=== PATIENT | male | born 2005 | race American Indian/Alaskan Native ===

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

== ENCOUNTER 2024-07-16 05:15 | Emergency (ER) | payer BC, OTHER ==
--- OUTSIDE RECORDS SUMMARY | 2024-07-16 05:20 | XMS REPORT | Continuity of Care Document ---
Author Name Unknown Address [address] [facility] [address] [place] [address] [facility] Address [address] [facility] [address] [facility] [address] [place] [address] Care Team Providers Care Clinical Research Physician Name Role Phone Pan Hodgson Primary Care Physician [phone] Pan Hodgson Attending Clinician Unavailable MARCO TIERNEY Attending Clinician Unavaila paul REYES Attending Clinician Unavailable Saurav [place], Marvin Attending Clinician [phone] Humberto RYAN, November Attending Clinician Unavailable Roseann Hodges MA Attending Clinician Unavail able Provider, [facility] Attending Clinician Un available Enid Bassett Attending Clinician [phone] ENID HAILE Attending Clinician Unavailable Doctor Unassigned, Waikele Attending Clinician U Speedy Molina MD Attending Clinician + [phone] Janette Attending Clinician Unavailable SPEEDY RAMOS M.D. Attending Clinician Un available CARDIOGENETICS, COUNSELOR Attending Clinician Un available AMY Admitting Clinician Unavailable Janette Admitting Clinician Unavailable Payers Payer Name Policy Type Policy Number Effective Date Expirati on Date Source BCBSTX O [id number] 2019 00:00:00 [facility] 6 [id number] [facility] Blue Cross [facility] 6 [id number] 2019 00:00:00 [facility] Problems Condition Name Condition Details Condition Category Status Onset Date Resolution Date Last Treatment Date Treating Clinician Comments Source 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 01-27 00:00: 00 [facility] Prolonged QT interval Prolonged QT interval [facility] Chest pain Chest pain Problem [facility] [id number] 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) Problem Active [facility] [id number] Mild intermitte nt asthma, unspecifie d whether complicate d Problem Active [facility] Laboratory test result abnormal Abnormal laboratory test result Problem Active [facility] [id number] 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 [facility] [id number] Loss of taste Problem Active [facility] [id number] QT prolongati on Problem Active [facility] [id number] GERD without esophagiti s Problem Active [facility] Attention deficit hyperactiv ity disorder ADHD (attention deficit hyperactiv ity disorder), combined type Problem Active [facility] [id number] Constipati on, unspecifie d constipati on type Problem Active [facility] [id number] Vitamin D deficiency disease Problem Active [facility] [id number] Generalize d anxiety disorder Problem Active [facility] Allergic rhinitis Non-season al allergic rhinitis, unspecifie d trigger Problem [facility] No known active problems No known active problems Disease [facility] Allergies, Adverse Reactions, Alerts Allergy Name Allergy Type Status Severity Reaction(s) Onset Date Inactive Date Treating Clinician Comments Source NO KNOWN ALLERGIE S Drug Class Active [facility] Social History Social Habit Start Date Stop Date Quantity Comments Source Exposure to SARS-CoV-2 (event) Not sure [facility] History of Tobacco Use [facility] Sex Assigned At [facility] Tobacco use and exposure 2021-02-28 00:00:00 2021-02-28 00:00:00 Never used [facility] Alcohol intake 2021-02-28 00:00:00 2021-02-28 00:00:00 Ex-drinker (finding) [facility] Smoking Status Start Date Stop Date Source Never Smoker [facility] Tobacco smoking consumption unknown [facility] Medications Ordered Medication Name Filled Medication Name Start Date Stop Date Current Medication? Ordering Clinician Indication Dosage Frequency Signature (SIG) Comments Components Source Amoxicillin -Pot Clavulanate 875-125 MG Amoxicillin -Pot Clavulanate 875-125 MG 2024-0 3-14 00:00: 00 No 1{table t} BID Amoxicilli n-Pot Clavulanat e 875-125 MG Albuterol Sulfate HFA 108 (90 Base) MCG/ACT Albuterol Sulfate HFA 108 (90 Base) MCG/ACT 2024-0 3-14 00:00: 00 No 2{puff_ as_need ed} 6xD Albuterol Sulfate HFA 108 (90 Base) MCG/ACT Pseudoeph-B romphen-DM 30-2-10 MG/5ML Pseudoeph-B romphen-DM 30-2-10 MG/5ML 2024-0 3-14 00:00: 00 No 5{ml_as _needed } QID Pseudoeph- Bromphen-D M 30-2-10 MG/5ML Amoxicillin -Pot Clavulanate 875-125 MG Amoxicillin -Pot Clavulanate 875-125 MG 2024-0 3-14 00:00: 00 No 1{table t} BID Amoxicilli n-Pot Clavulanat e 875-125 MG Albuterol Sulfate HFA 108 (90 Base) MCG/ACT Albuterol Sulfate HFA 108 (90 Base) MCG/ACT 2024-0 3-14 00:00: 00 No 2{puff_ as_need ed} 6xD Albuterol Sulfate HFA 108 (90 Base) MCG/ACT Pseudoeph-B romphen-DM 30-2-10 MG/5ML Pseudoeph-B romphen-DM 30-2-10 MG/5ML 2024-0 3-14 00:00: 00 No 5{ml_as _needed } QID Pseudoeph- Bromphen-D M 30-2-10 MG/5ML Fluticasone -Salmeterol 113-14 MCG/ACT Fluticasone -Salmeterol 113-14 MCG/ACT 2023-0 6-27 00:00: 00 No 2{puffs } BID Fluticason e-Salmeter ol 113-14 MCG/ACT Fluticasone -Salmeterol 113-14 MCG/ACT Fluticasone -Salmeterol 113-14 MCG/ACT 2023-0 6- 00:00: 00 No 2{puffs } BID Fluticason e-Salmeter ol 113-14 MCG/ACT Fluticasone -Salmeterol 113-14 MCG/ACT Fluticasone -Salmeterol 113-14 MCG/ACT 2023-0 6 00:00: 00 No 2{puffs } BID Fluticason e-Salmeter ol 113-14 MCG/ACT Fluticasone -Salmeterol 113-14 MCG/ACT Fluticasone -Salmeterol 113-14 MCG/ACT 2023-0 02-13 00:00: 00 No 2{puffs } BID Fluticason e-Salmeter ol 113-14 MCG/ACT Fluticasone -Salmeterol 113-14 MCG/ACT Fluticasone -Salmeterol 113-14 MCG/ACT 2023-0 6 00:00: 00 No 2{puffs } BID Fluticason e-Salmeter ol 113-14 MCG/ACT methylPREDN ISolone 4 MG methylPREDN ISolone 4 MG 2023-0 6- 00:00: 00 No QD methylPRED NISolone 4 MG Fluticasone -Salmeterol 115-21 MCG/ACT Fluticasone -Salmeterol 115-21 MCG/ACT 2023-0 6- 00:00: 00 No 2{puffs } BID Fluticason e-Salmeter ol 115-21 MCG/ACT Fluticasone -Salmeterol 115-21 MCG/ACT Fluticasone -Salmeterol 115-21 MCG/ACT 2023-0 6- 00:00: 00 No 2{puffs } BID Fluticason e-Salmeter ol 115-21 MCG/ACT Fluticasone -Salmeterol 115-21 MCG/ACT Fluticasone -Salmeterol 115-21 MCG/ACT 3-0 02-12 00:00: 00 No 2{puffs } BID Fluticason e-Salmeter ol 115-21 MCG/ACT methylPREDN ISolone 4 MG methylPREDN ISolone 4 MG 2022-0 02-12 00:00: 00 No QD methylPRED NISolone 4 MG Fluticasone -Salmeterol 115-21 MCG/ACT Fluticasone -Salmeterol 115-21 MCG/ACT 3-0 02-12 00:00: 00 No 2{puffs } BID Fluticason e-Salmeter ol 115-21 MCG/ACT methylPREDN ISolone 4 MG methylPREDN ISolone 4 MG 2022-0 02-12 00:00: 00 No QD methylPRED NISolone 4 MG Fluticasone -Salmeterol 115-21 MCG/ACT Fluticasone -Salmeterol 115-21 MCG/ACT 3-0 02-12 00:00: 00 No 2{puffs } BID Fluticason e-Salmeter ol 115-21 MCG/ACT No known medications 0 330 10:02: 39 No No known medication s [facility] Doxycycline Hyclate 100 MG Doxycycline Hyclate 100 MG 04-21 00:00: 00 No 1{capsu le} BID Doxycyclin e Hyclate 100 MG Doxycycline Hyclate 100 MG Doxycycline Hyclate 100 MG 0 04-21 00:00: 00 No 1{capsu le} BID Doxycyclin e Hyclate 100 MG No known medications 6 12:52: 48 No No known medication s [facility] Flonase Allergy Relief 50 MCG/ACT Flonase Allergy Relief 50 MCG/ACT 2019-08 00:00: 00 No 1{spray _in_eac h_nostr il} QD Flonase Allergy Relief 50 MCG/ACT Flonase Allergy Relief 50 MCG/ACT Flonase Allergy Relief 50 MCG/ACT 2019-08 00:00: 00 No 1{spray _in_eac h_nostr il} QD Flonase Allergy Relief 50 MCG/ACT Vitamin D (Ergocalcif velia) 1.25 MG (94880 [facility]) Oral Capsule Vitamin D (Ergocalcif velia) 1.25 MG (04392 [facility]) Oral Capsule 2018-08 0-04 00:00: 00 Yes [facility] Vitamin D3 Vitamin D3 04-18 00:00: 00 Yes Pan Hodgson 1 capsule [facility] Vitamin D3 96340 UNIT Vitamin D3 49581 UNIT 04-18 00:00: 00 No 1{capsu le} Vitamin D3 05782 UNIT Vitamin D3 92371 UNIT Vitamin D3 70867 UNIT 04-18 00:00: 00 No 1{capsu le} Vitamin D3 32081 UNIT Vitamin D3 13419 UNIT Vitamin D3 76544 UNIT 04-18 00:00: 00 No 1{capsu le} Vitamin D3 34154 UNIT Vitamin D3 39466 UNIT Vitamin D3 10264 UNIT 04-18 00:00: 00 No 1{capsu le} Vitamin D3 91431 UNIT Vitamin D3 98162 UNIT Vitamin D3 59476 UNIT 04-18 00:00: 00 No 1{capsu le} Vitamin D3 44278 UNIT Vitamin D3 97702 UNIT Vitamin D3 03206 UNIT 04-18 00:00: 00 No 1{capsu le} Vitamin D3 55402 UNIT Vitamin D3 32604 UNIT Vitamin D3 65996 UNIT 04-18 00:00: 00 No 1{capsu le} Vitamin D3 89779 UNIT Nadolol 40 MG Oral Tablet Nadolol 40 MG Oral Tablet 3-22 00:00: 00 Yes SPEEDY RAMOS M.D. 1 QD TAKE 1 TABLET DAILY [facility] Arnuity Ellipta Arnuity Ellipta 2-07 00:00: 00 Yes Pan Hodgson 1 puff [facility] No known medications No [facility] GuanFACINE HCl ER GuanFACINE HCl ER Yes Pan Hodgson 1 tablet qd x 1 week then 2 tabs qd [facility] Nadolol Nadolol Yes Pan Hodgson 1 tablet [facility] guanFACINE HCl ER 1 MG guanFACINE HCl ER 1 MG No QD guanFACINE HCl ER 1 MG Arnuity Ellipta 100 MCG/ACT Arnuity Ellipta 100 MCG/ACT No 1{puff} QD Arnuity Ellipta 100 MCG/ACT Nadolol 20 MG Nadolol 20 MG No 1{table t} QD Nadolol 20 MG guanFACINE HCl ER 1 MG guanFACINE HCl ER 1 MG No QD guanFACINE HCl ER 1 MG Nadolol 20 MG Nadolol 20 MG No 1{table t} QD Nadolol 20 MG No known medications No [facility] Arnuity Ellipta 100 MCG/ACT Arnuity Ellipta 100 MCG/ACT 09-14 00:00 :00 No QD Arnuity Ellipta 100 MCG/ACT Vital Signs Vital Name Observation Time Observation Value Comments S ource height 2023-11-01 09:20:00 68 [in_i] [facility] weight 2023-11-01 09:20:00 185 [lb_av] [facility] bmi 2023-11-01 09:20:00 28.13 kg/m2 [facility] height 2023-02-12 14:00:00 68 [in_i] [facility] weight 2023-02-12 14:00:00 182 [lb_av] [facility] temperature 2023-02-12 14:00:00 97.8 [degF] [facility] bmi 2023-02-12 14:00:00 27.67 kg/m2 [facility] oximetry 2023-02-12 14:00:00 99 % [facility] respiratory rate 2023-02-12 14:00:00 17 /min [facility] blood pressure systolic 2023-02-12 14:00:00 120 mm[Hg] [facility] blood pressure diastolic 2023-02-12 14:00:00 66 mm[Hg] [facility] height 2022-12-14 16:00:00 68 [in_i] [facility] weight 2022-12-14 16:00:00 190.2 [lb_av] [facility] temperature 2022-12-14 16:00:00 97.7 [degF] [facility] bmi 2022-12-14 16:00:00 28.92 kg/m2 [facility] oximetry 2022-12-14 16:00:00 97 % [facility] respiratory rate 2022-12-14 16:00:00 16 /min [facility] blood pressure systolic 2022-12-14 16:00:00 133 mm[Hg] [facility] blood pressure diastolic 2022-12-14 16:00:00 70 mm[Hg] [facility] Systolic blood pressure 2021-11-16 15:02:00 114 mm[Hg] [facility] Diastolic blood pressure 2021-11-16 15:02:00 52 mm[Hg] [facility] Heart rate 2021-11-16 15:02:00 45 /min [facility] Body height 2021-11-16 15:02:00 176 cm [facility] Body weight 2021-11-16 15:02:00 86.2 kg [facility] BMI 2021-11-16 15:02:00 27.83 kg/m2 [facility] Body mass index (BMI) [Percentile] Per age and sex 2021-11-16 15:02:00 93.28 % [facility] Oxygen saturation in Arterial blood by Pulse oximetry 2021-11-16 15:02:00 98 /min [facility] Systolic blood pressure 2021-02-28 23:40:00 117 mm[Hg] [facility] Diastolic blood pressure 2021-02-28 23:40:00 73 mm[Hg] [facility] Heart rate 2021-02-28 23:40:00 67 /min [facility] Body temperature 2021-02-28 23:40:00 36.83 Tamar [facility] Respiratory rate 2021-02-28 23:40:00 16 /min [facility] Body height 2021-02-28 23:40:00 175.3 cm [facility] Body weight 2021-02-28 23:40:00 89.359 kg [facility] BMI 2021-02-28 23:40:00 29.09 kg/m2 [facility] Oxygen saturation in Arterial blood by Pulse oximetry 2021-02-28 23:40:00 98 /min [facility] Systolic blood pressure 2021-01-28 17:51:00 123 mm[Hg] [facility] Diastolic blood pressure 2021-01-28 17:51:00 68 mm[Hg] [facility] Heart rate 2021-01-28 17:51:00 64 /min [facility] Body height 2021-01-28 17:51:00 176 cm [facility] Body weight 2021-01-28 17:51:00 89.5 kg [facility] BMI 2021-01-28 17:51:00 28.89 kg/m2 [facility] Oxygen saturation in Arterial blood by Pulse oximetry 2021-01-28 17:51:00 97 /min [facility] Systolic blood pressure 2019-10-22 13:42:00 107 mm[Hg] Location: [facility]; Position: Sitting [facility] Diastolic blood pressure 2019-10-22 13:42:00 76 mm[Hg] Location: RUE; Position: Sitting [facility] O2 SAT 2019-10-22 13:42:00 97 % Source: [facility] Body height 2019-10-22 13:42:00 174 cm [facility] Weight 2019-10-22 13:42:00 84.8 kg [facility] Body mass index (BMI) [Ratio] 2019-10-22 13:42:00 28.01 kg/m2 [facility] Heart Rate 2019-10-22 13:42:00 61 /min [facility] BP Systolic 2019-08-22 11:11:00 112 mm[Hg] Location: LUE; Position: Sitting [facility] BP Diastolic 2019-08-22 11:11:00 72 mm[Hg] Location: LUE; Position: Sitting [facility] Height 2019-08-22 11:11:00 173 cm [facility] Weight 2019-08-22 11:11:00 84.6 kg [facility] Body Mass Index Calculated 2019-08-22 11:11:00 28.27 kg/m2 [facility] Heart Rate 2019-08-22 11:11:00 70 /min [facility] O2 SAT 2019-08-22 11:11:00 100 % [facility] BP Systolic 2019-05-23 10:34:00 106 mm[Hg] Location: RUE; Position: Sitting [facility] BP Diastolic 2019-05-23 10:34:00 82 mm[Hg] Location: RUE; Position: Sitting [facility] Height 2019-05-23 10:34:00 173 cm [facility] Weight 2019-05-23 10:34:00 85.3 kg [facility] Body Mass Index Calculated 2019-05-23 10:34:00 28.5 kg/m2 [facility] Heart Rate 2019-05-23 10:34:00 56 /min [facility] O2 SAT 2019-05-23 10:34:00 97 % Source: [facility] BP Systolic 2019-02-07 10:44:00 104 mm[Hg] Location: RUE; Position: Sitting [facility] BP Diastolic 2019-02-07 10:44:00 68 mm[Hg] Location: RUE; Position: Sitting [facility] Height 2019-02-07 10:44:00 171 cm [facility] Weight 2019-02-07 10:44:00 78.3 kg [facility] Body Mass Index Calculated 2019-02-07 10:44:00 26.78 kg/m2 [facility] Heart Rate 2019-02-07 10:44:00 60 /min [facility] O2 SAT 2019-02-07 10:44:00 100 % [facility] BP Systolic 2018-11-08 10:59:00 107 mm[Hg] Location: RUE; Position: Sitting [facility] BP Diastolic 2018-11-08 10:59:00 61 mm[Hg] Location: RUE; Position: Sitting [facility] Height 2018-11-08 10:59:00 169 cm [facility] Weight 2018-11-08 10:59:00 72.8 kg [facility] Body Mass Index Calculated 2018-11-08 10:59:00 25.49 kg/m2 [facility] O2 SAT 2018-11-08 10:59:00 99 % [facility] Heart Rate 2018-11-08 10:59:00 63 /min [facility] BP Systolic 2018-10-04 13:39:00 124 mm[Hg] Location: LLE; Position: Sitting [facility] BP Diastolic 2018-10-04 13:39:00 57 mm[Hg] Location: LLE; Position: Sitting [facility] BP Systolic 2018-10-04 13:38:00 130 mm[Hg] Location: RLE; Position: Sitting [facility] BP Diastolic 2018-10-04 13:38:00 62 mm[Hg] Location: RLE; Position: Sitting [facility] BP Systolic 2018-10-04 13:36:00 103 mm[Hg] Location: LUE; Position: Sitting [facility] BP Diastolic 2018-10-04 13:36:00 68 mm[Hg] Location: LUE; Position: Sitting [facility] BP Systolic 2018-10-04 13:21:00 120 mm[Hg] Location: [facility]UE; Position: Sitting [facility] BP Diastolic 2018-10-04 13:21:00 73 mm[Hg] Location: RUE; Position: Sitting [facility] O2 SAT 2018-10-04 13:21:00 99 % Source: [facility] Height 2018-10-04 13:21:00 168 cm [facility] Weight 2018-10-04 13:21:00 71 kg [facility] Body Mass Index Calculated 2018-10-04 13:21:00 25.16 kg/m2 [facility] Heart Rate 2018-10-04 13:21:00 64 /min [facility] Procedures Procedure Date / Time Performed Performing Clinicia n Source ECG 12-LEAD 2021-11-16 00:00:00 Marvin Mg [facility] POCT GRP A STREP (MOLECULAR) 2021-03-01 00:21:00 Enid Haile [facility] ASSIGNMENT OF BENEFITS 2021-02-28 23:31:46 Docto r Unassigned, Waikele [facility] EKG (In Office) 2020-03-22 00:00:00 [facility] Echo (In Office) 2020-03-22 00:00:00 [facility] (In Office) 2019-10-16 00:00:00 [facility] EKG (In Office) 2019-10-16 00:00:00 [facility] EKG (In Office) 2019-07-15 00:00:00 [facility] (In Office) 2019-07-15 00:00:00 [facility] [O] Cardiac Stresst Test, ECG and BP Only 2019-05-23 00:00:00 [facility] EKG (In Office) 2019-05-07 00:00:00 [facility] (In Office) 2019-05-07 00:00:00 [facility] EKG (In Office) 2019-01-31 00:00:00 [facility] (In Office) 2019-01-31 00:00:00 [facility] EKG (In Office) 2018-10-31 00:00:00 [facility] (In Office) 2018-10-31 00:00:00 [facility] EKG (In Office) 2018-09-27 00:00:00 [facility] (In Office) 2018-09-27 00:00:00 [facility] Plan of Care Planned Activity Planned Date Details Comments Source Future Scheduled Test 2020-04-02 00:00:00 Echo ( In Office) [code = 78606] [facility] Diagnostic Test Pending 2019-10-22 00:00:00 Echo (In Office) [code = 24429] [facility] Diagnostic Test Pending 2019-10-22 00:00:00 EKG (In Office) [code = EKG (In Office)] [facility] Diagnostic Test Pending 2019-10-22 00:00:00 Echo (In Office) [code = 55936] [facility] Diagnostic Test Pending 2019-07-25 00:00:00 Echo (In Office) [code = 11961] [facility] Diagnostic Test Pending 2019-07-25 00:00:00 Echo (In Office) [code = 42250] [facility] Diagnostic Test Pending 2019-06-02 00:00:00 [O] Cardiac Stresst Test, ECG and BP Only [code = [O] Cardiac Stresst Test, ECG and BP Only] [facility] Diagnostic Test Pending 2019-06-02 00:00:00 [O] Cardiac Stresst Test, ECG and BP Only [code = [O] Cardiac Stresst Test, ECG and BP Only] [facility] Diagnostic Test Pending 2019-05-23 00:00:00 Echo (In Office) [code = 80179] [facility] Diagnostic Test Pending 2019-05-23 00:00:00 Echo (In Office) [code = 01033] [facility] Diagnostic Test Pending 2019-05-16 00:00:00 Echo (In Office) [code = 37010] [facility] Diagnostic Test Pending 2019-02-07 00:00:00 Echo (In Office) [code = 51341] [facility] Diagnostic Test Pending 2019-02-07 00:00:00 Echo (In Office) [code = 83783] [facility] Diagnostic Test Pending 2018-11-08 00:00:00 Echo (In Office) [code = 65478] [facility] Test Pending 2018-11-08 00:00:00 Echo (In Office) [code = 04562] [facility] Encounters Start Date/Time End Date/Time Encounter Type Admission Type Attending [facility] Care Department Encounter ID Source 2024-03-12 12:32:00 Outpatient Hodgson, Pan [facility] [id number] [facility] 2023-11-01 09:11:00 Outpatient Hodgson, Pan [facility] [id number] [facility] 2023-06-21 08:03:00 Outpatient Hodgson, Pan [facility] [id number] [facility] 2023-02-12 10:51:01 Outpatient Hodgson, Pan [facility] [id number] [facility] 2022-02-24 11:16:00 Outpatient Hodgson, Pan [facility] [id number] [facility] 2021-09-14 14:34:53 Outpatient Hodgson, Pan [facility] [id number] [facility] 2021-09-14 13:55:09 Outpatient Hodgson, Pan [facility] [id number] [facility] 2021-09-14 13:49:16 Outpatient Hodgson, Pan [facility] [id number] [facility] 2021-09-14 12:49:43 Outpatient Hodgson, Pan [facility] [id number] [facility] 2021-09-14 11:48:15 Outpatient Hodgson, Pan [facility] [id number] [facility] 2021-09-14 11:20:33 Outpatient Hodgson, Pan [facility] [id number] [facility] 2021-09-14 11:18:10 Outpatient Hodgson, Pan [facility] [id number] [facility] 2021-09-14 11:06:45 Outpatient Pan Hodgson [facility] [id number] [facility] 2021-01-28 14:36:22 Outpatient MARCO TIERNEY [facility] [id number] [facility] 2023-11-01 00:00:00 2023-11-01 00:00:00 OFFICE VISIT ESTAB PT LEVEL 3 [facility] ST[facility] [id number] [facility] 2023-11-01 00:00:00 2023-11-01 00:00:00 (TEL) STLMLC [facility] [id number] [facility] 2023-02-13 00:00:00 2023-02-13 00:00:00 (TEL) STLMLC STL[facility] [id number] [facility] 2023-02-12 00:00:00 2023-02-12 00:00:00 OFFICE VISIT ESTAB PT LEVEL 3 [facility] ST[facility] [id number] [facility] 2022-12-14 00:00:00 2022-12-14 00:00:00 OFFICE VISIT ESTAB PT LEVEL 3 [facility]LMLC STL[facility] [id number] [facility] 2022-05-05 00:00:00 2022-05-05 00:00:00 (TEL) STLMLC STL[facility]C [id number] [facility] 2022-03-23 00:00:00 2022-03-23 00:00:00 Outpatient SAIMA[facility]SOPHIA [facility] [id number] [facility] 2021-11-16 10:40:00 2021-11-16 10:58:47 Office Visit Marvin Mg [facility] [address] [id number] [facility] 2021-10-05 00:00:00 2021-10-05 00:00:00 Telephone Humberto, Ashley Paul, Ashley [facility] [id number] [facility] 2021-09-19 00:00:00 2021-09-19 00:00:00 (TEL) STLMLC STLMLC [id number] [facility] 2021-09-08 00:00:00 2021-09-08 00:00:00 (TEL) STLMLC STLMLC [id number] [facility] 2021-09-08 00:00:00 2021-09-08 00:00:00 OFFICE VISIT ESTAB PT LEVEL 1 STLMLC STL[facility]C [id number] [facility] 2021-08-02 00:00:00 2021-08-02 00:00:00 Orders Only Roseann Hodges Cristina [facility] [address] [id number] [facility] 2021-04-22 00:00:00 2021-04-22 00:00:00 Outpatient STLMLC ST[facility] [id number] [facility] 2021-04-21 00:00:00 2021-04-21 00:00:00 Outpatient STLMLC ST[facility] [id number] [facility] 2021-04-21 00:00:00 2021-04-21 00:00:00 Outpatient STLMLC STL[facility] [id number] [facility] 2021-04-19 00:00:00 2021-04-19 00:00:00 Outpatient STLMLC [facility] [id number] [facility] 2021-04-13 00:00:00 2021-04-13 00:00:00 Outpatient STLMLC [facility] [id number] [facility] 2021-04-11 00:00:00 2021-04-11 00:00:00 Outpatient [facility] [id number] [facility] 2021-02-28 18:39:59 2021-02-28 18:59:59 [facility] [address] [id number] [facility] 2021-02-28 18:40:00 2021-02-28 18:40:00 Outpatient Yo MIC [facility] [id number] [facility] 2021-02-28 00:00:00 2021-02-28 00:00:00 Letter (Out) Doctor Unassigned, Waikele [facility] [id number] [facility] 2021-02-28 00:00:00 2021-02-28 00:00:00 Orders Only Doctor Unassigned, Waikele [facility] 1..114 [id number] [facility] 2021-01-28 12:38:37 2021-01-28 14:44:53 Office Visit Speedy Ramos [address] [id number] [id number] [facility] 2020-12-24 11:45:00 2020-12-24 11:45:00 Outpatient Young_[facility] [id number] 2020-11-25 00:00:00 2020-11-25 00:00:00 Outpatient STLMLC STLMLC [id number] [facility] 2020-11-25 00:00:00 2020-11-25 00:00:00 Outpatient STLMLC STLMLC [id number] [facility] 2020-09-07 00:00:00 2020-09-07 00:00:00 Outpatient STLMLC STLMLC [id number] [facility] 2020-08-25 00:00:00 2020-08-25 00:00:00 Outpatient STLMLC STLMLC [id number] [facility] 2020-08-18 00:00:00 2020-08-18 00:00:00 Outpatient STLMLC STLMLC [id number] [facility] 2020-07-07 00:00:00 2020-07-07 00:00:00 Outpatient STLMLC STLMLC [id number] [facility] 2020-07-07 00:00:00 2020-07-07 00:00:00 Outpatient STLMLC STLMLC [id number] [facility] 2020-06-25 00:00:00 2020-06-25 00:00:00 Outpatient STLMLC STLMLC [id number] [facility] 2020-05-12 00:00:00 2020-05-12 00:00:00 Outpatient STLMLC STLMLC [id number] [facility] 2020-05-12 00:00:00 2020-05-12 00:00:00 Outpatient STLMLC STLMLC [id number] [facility] 2020-02-20 10:20:00 2020-02-20 10:20:00 SPEEDY Ya M.D. SRINIVASAN, CHANDRA, M.D. [facility] [id number] [place] [facility] 2019-10-22 14:00:00 2019-10-22 14:00:00 AppointSPEEDY Cunningham M.D. SRINIVASAN, CHANDRA, M.D. [facility] Ped Cardiology [id number] [place] [facility] 2019-09-29 13:30:00 2019-09-29 13:30:00 [facility] [facility] [id number] [facility] 2019-09-15 13:45:00 2019-09-15 13:45:[address] [facility] [address] [facility] [place] [facility] [id number] [facility] 2019-08-22 10:20:00 2019-08-22 10:20:00 Appointmen t; SPEEDY RAMOS M.D. SRINIVASAN, CHANDRA, M.D. [facility] [id number] [facility] 2019-07-25 10:00:00 2019-07-25 10:00:00 Appointmen t; SPEEDY RAMOS M.D. SRINIVASAN, CHANDRA, M.D. [facility] [id number] [facility] 2019-07-21 13:20:00 2019-07-21 13:20:00 [facility] [address] [facility] [id number] [facility] 2019-06-12 08:28:00 2019-06-12 08:28:00 [facility] [address] [facility] [place] [facility] [id number] [facility] 2019-06-06 16:41:00 2019-06-06 16:41:00 [facility] [facility] [address] [facility] [id number] [facility] 2019-05-23 10:00:00 2019-05-23 10:00:00 Appointmen t; SPEEDY RAMOS M.D. SRINIVASAN, CHANDRA, M.D. [facility] [id number] [place] [facility] 2019-05-21 09:00:00 2019-05-21 09:00:00 [facility] [address] [facility] [place] [facility] [id number] [facility] 2019-05-16 13:20:00 2019-05-16 13:20:00 Appointmen t; SPEEDY RAMOS M.D. SRINIVASAN, CHANDRA, M.D. [facility] [id number] [facility] 2019-04-16 07:48:00 2019-04-16 07:48:00 [facility] [address] [facility] [id number] [facility] 2019-04-08 15:29:00 2019-04-08 15:29:[address] [facility] [facility] [address] [facility] [place] [facility] [id number] [facility] 2019-04-07 09:30:00 2019-04-07 09:30:00 [facility] [address] [facility] [place] [facility] Medicine [id number] [facility] 2019-04-03 08:40:00 2019-04-03 08:40:[address] [facility] [address] [facility] [place] [facility] [id number] [facility] 2019-03-24 09:16:00 2019-03-24 09:16:00 [facility] [address] [facility] [place] [facility] Medicine [id number] [facility] 2019-03-11 11:30:00 2019-03-11 11:30:00 [facility] [address] [facility] Medicine [id number] [facility] 2019-02-07 11:20:00 2019-02-07 11:20:00 Appointmen t; SPEEDY RAMOS M.D. SRINIVASAN, CHANDRA, M.D. [facility] [id number] [place] [facility] 2018-12-09 13:30:00 2018-12-09 13:30:[address] [place] [facility] [address] [facility] [place] [facility] [id number] [facility] 2018-11-20 09:30:00 2018-11-20 09:30:[address] [facility] [address] [facility] [place] [facility] [facility] [id number] [facility] 2018-11-08 11:00:00 2018-11-08 11:00:00 Appointmen t; SPEEDY RAMOS M.D. SRINIVASAN, CHANDRA, M.D. [facility] [id number] [facility] 2018-11-05 10:00:00 2018-11-05 10:00:00 Appointmen t; CARDIOGENE TICS, COUNSELOR CARDIOGENET ICS, COUNSELOR [facility] [id number] [facility] 2018-10-04 13:20:00 2018-10-04 13:20:00 SPEEDY Ya M.D. SRINIVASAN, CHANDRA, M.D. [facility] Pedi Cardiology [id number] [place] [facility] 2018-10-03 08:17:00 2018-10-03 08:17:00 [facility] [id number] [facility] 2018-09-26 08:30:00 2018-09-26 08:30:00 [facility] [id number] [facility] 2018-09-25 16:15:00 2018-09-25 16:15:00 [facility] [id number] [facility] 2018-09-11 13:00:00 2018-09-11 13:00:00 [facility] [id number] [facility] 2018-08-27 14:45:00 2018-08-27 14:45:00 [facility] [id number] [facility] Results Test Description Test Time Test Comments Results Result Co mments Source STREP A RAPID 2023-11-01 00:00:[address] [facility] Use [id number] 13:20:00* Test Item Value Reference Range Interpretation Comme nts Completed (test code = Completed) DONE [facility], COVID 19 Antigen + Flu by [facility], COVID 19 Antigen + Flu by [facility], COVID 19 Antigen + Flu by [facility], COVID 19 Antigen + Flu by Mayelin
[2024-07-16] MEDS ORDERED: LORazepam 2 MG/ML VIAL ONE (05:55)
[2024-07-16] MEDS ORDERED: NA CHLORIDE 0.9% 1,000 ML ONE (05:56)
[2024-07-16] MEDS ORDERED: METOCLOPRAMIDE 10 MG/2mL INJ ONE (05:56)
[2024-07-16 05:58] LABS: Absolute Eosinophils 0.1 K/uL (0-0.5); Absolute Lymphocytes (CBC) 0.7 K/uL (0.7-4.9); Absolute Neutrophil 13.7 K/uL (1.8-8.0); Basophils % 0.2 % (0-1.3); Eosinophils % 0.5 % (0-4.4); Hematocrit 49.3 % (39.6-49.0); Hemoglobin 16.5 g/dL (13.6-17.9); Lymphocytes % 4.4 % (15.3-44.8); MCH 28.4 pg (27.0-35.0); MCHC 33.5 g/dL (32.0-36.0); MCV 84.6 fL (80-100); MPV 7.3 fL (7.6-11.3); Monocytes % 6.2 % (3.3-12.3); Neutrophils % 88.7 % (41.7-73.7); Nucleated Red Blood Cells % 0.1 % (0-0); Platelets 343 thou/uL (152-406); RBC Red Blood Cell Count 5.82 M/uL (4.33-5.43); Red Cell Distribution Width 13.8 % (12.1-15.2)
[2024-07-16 06:19] LABS: Albumin 4.2 g/dL (3.4-5.0); Albumin/Globulin Ratio 0.8 (1.1-1.8); Anion Gap 9.1 mEq/L (5.0-15.0); Bilirubin Total 1.5 mg/dL (0.2-1.0); Globulin 5.4 g/dL (2.3-3.5); Potassium 4.1 mEq/L (3.5-5.1); Protein, Total 9.6 g/dL (6.4-8.2)
[2024-07-16 07:26] LABS: Blood Morphology Comment NOT SEEN (NOT SEEN); Differential Total Cells Count 100; Eosinophils 1 % (0-3); Lymphocytes 3 % (15-42); Monocytes 6 % (0-10); Platelet Estimate ADEQ; Segmented Neutrophils 90 % (40-80)
[2024-07-16] MEDS ORDERED: CIPROFLOXACIN HCL 500 MG TAB ONE (07:33)
--- NOTE | 2024-07-16 07:58 | ER ---
Nurse's Notes [facility] Mark Name: Amy Carrier Age: 19 yrs Sex: Male : 2005 Arrival Date: 07/16/2024 Time: 05:15 Bed 17 Private MD: Diagnosis: Infectious gastroenteritis and colitis, unspecified;Hyperventilation Presentation: 07/16 05:33 Chief complaint: Patient states: I have been throwing up since midnight and LBM 5x. My rg5 back is now hurting and also my chest. Coronavirus screen: Client denies travel out of the [place] in the last 14 days. Ebola Screen: Patient negative for fever greater than or equal to 101.5 degrees Fahrenheit, and additional compatible Ebola Virus Disease symptoms. Initial Sepsis Screen: Does the patient meet any 2 criteria? No. Patient's initial sepsis screen is negative. Does the patient have a suspected source of infection? No. Patient's initial sepsis screen is negative. Risk Assessment: Do you want to hurt yourself or someone else? Patient reports no desire to harm self or others. Onset of symptoms was July 16, 2024. 05:33 Method Of Arrival: Ambulatory rg5 05:33 Acuity: DONTAE 3 rg5 Triage Assessment: 05:39 General: Appears in no apparent distress. Behavior is calm, cooperative, appropriate rg5 for age. Pain: Complains of pain in back and chest. EENT: No deficits noted. Neuro: Level of Consciousness is awake, alert, Oriented to person, place, time. Cardiovascular: Reports chest pain. Respiratory: Airway is patent Trachea midline Respiratory effort is even, unlabored, Respiratory pattern is regular, symmetrical. GI: Abdomen is flat, non-distended, Bowel sounds present X 4 quads. Abd is soft and non tender Reports diarrhea, nausea, vomiting. : No signs and/or symptoms were reported regarding the genitourinary system. Derm: Skin is intact, Skin is dry, Skin is normal, Skin temperature is warm. Musculoskeletal: Circulation, motion, and sensation intact. Capillary refill < 3 seconds, Range of motion: intact in all extremities. Historical: - Allergies: 05:39 No Known Allergies; rg5 - Immunization history:: Adult Immunizations up to date. - Infectious Disease History:: Denies. - Social history:: Smoking status: Patient denies any tobacco usage or history of. Screenin:00 [facility] ED Fall Risk Assessment (Adult) History of falling in the last 3 months, bp including since admission No falls in past 3 months (0 pts) Confusion or Disorientation No (0 pts) Intoxicated or Sedated No (0 pts) Impaired Gait No (0 pts) Mobility Assist Device Used No (0 pt) Altered Elimination No (0 pt) Score/Fall Risk Level 0 - 2 = Low Risk. Abuse screen: Denies threats or abuse. Denies injuries from another. Nutritional screening: No deficits noted. Tuberculosis screening: No symptoms or risk factors identified. Assessment: 05:42 Reassessment: see triage assessment. rg5 Vital Signs: 05:33 BP 127 / 87; Pulse 95; Resp 18; Temp 98.6; Pulse Ox 98% on R/A; Weight 99.79 kg; Height rg5 6 ft. 0 in. ; Pain 10/10; 05:39 BP 127 / 87; Pulse 95; Resp 18 S; Pulse Ox 98% on R/A; Pain 10/10; rg5 08:01 BP 128 / 86; Pulse 100; Resp 22; Pulse Ox 98% ; bp 05:33 Body Mass Index 29.84 (99.79 kg, 182.88 cm) rg5 05:33 Pain Scale: Adult rg5 05:39 Pain Scale: Adult rg5 ED Course: 05:21 Patient arrived in ED. gm2 05:23 Louie Patel, RN is Primary Nurse. rg5 05:39 Triage completed. rg5 05:39 Arm band placed on right wrist. rg5 05:41 Michi Land MD is Attending Physician. bo1 07:00 Patient has correct armband on for positive identification. Provided Education on: NA. bp 07:02 Primary Nurse role handed off by Louie Patel, SHELBY bp 07:02 Shai Bliss, SHELBY is Primary Nurse. bp 08:30 No provider procedures requiring assistance completed. IV discontinued, intact, bp bleeding controlled, No redness/swelling at site. Pressure dressing applied. Administered Medications: 06:02 Drug: NS 0.9% IV 1000 ml IV at 1 bolus Per protocol; to be given as a bolus over 60 rg5 minutes Route: IV; Rate: 1 bolus; Site: right antecubital; 08:31 Follow up: IV Status: Completed infusion bp 06:02 Drug: metoCLOPramide IVP 10 mg IVP once; over 1 to 2 minutes Route: IVP; Site: right rg5 antecubital; 08:31 Follow up: Response: No adverse reaction bp 06:02 Drug: Ativan IVP 1 mg IVP once Route: IVP; Site: right antecubital; rg5 08:31 Follow up: Response: No adverse reaction bp 07:30 Drug: Ciprofloxacin PO 500 mg PO once Route: PO; bp 08:30 Follow up: Response: No adverse reaction bp Outcome: 07:57 Discharge ordered by MD. palomo 08:30 Discharged to home ambulatory, with family, bp 08:30 Condition: stable 08:30 Discharge instructions given to patient, Instructed on discharge instructions, follow up and referral plans. medication usage, Demonstrated understanding of instructions, follow-up care, medications, Prescriptions given X 2, 08:31 Patient left the ED. bp Signatures: Shai Bliss RN RN bp Noemí Ambriz gm2 Michi Land MD MD bo1 Louie Patel RN RN rg5
--- NOTE | 2024-07-16 07:58 | EDPHYS ---
Physician Documentation [facility] Mark Name: Amy Carrier Age: 19 yrs Sex: Male : 2005 Arrival Date: 07/16/2024 Time: 05:15 Bed 17 Private MD: ED Physician Michi Land HPI: 07/16 05:51 This 19 yrs old Male presents to ER via Ambulatory with complaints of bo1 Nausea/Vomiting/Diarrhea, Back Pain, Abdominal Pain. 05:51 The patient presents to the emergency department with nausea, vomiting, diarrhea. bo1 Onset: The symptoms/episode began/occurred gradually, 2 day(s) ago. Possible causes: bad food exposure, chicken, Pt's sig other is similarly ill. Associated signs and symptoms: Pertinent positives: Carpal-pedal spasm, numbness and tingling. Hx of prolonged QT. Mother is providing some history. Historical: - Allergies: 05:39 No Known Allergies; rg5 - Immunization history:: Adult Immunizations up to date. - Infectious Disease History:: Denies. - Social history:: Smoking status: Patient denies any tobacco usage or history of. ROS: 07:45 Constitutional: Negative for fever, chills, and weight loss bo1 07:45 Constitutional: Positive for Hands and feet are cramping, 07:45 Respiratory: Positive for shortness of breath, 07:45 Abdomen/GI: Positive for abdominal pain, nausea, vomiting, and diarrhea, 07:45 MS/extremity: Negative for swelling, 07:45 Skin: Negative for rash, Exam: 07:47 Constitutional: This is a well developed, well nourished patient who is awake, alert, bo1 and in acute distress. 07:47 Constitutional: The patient appears alert, anxious, in obvious distress, moderately distressed, Hyperventilating 07:47 Eyes: Sclera: no acute changes, icterus, is not appreciated, 07:47 Cardiovascular: Rate: normal, Rhythm: regular, Pulses: no pulse deficits are appreciated, 07:47 Respiratory: the patient does not display signs of respiratory distress, Increased respiratory rate but shallow, Breath sounds: are clear throughout, 07:47 Musculoskeletal/extremity: Spasm to all hands and feet/toes. 07:49 Abdomen/GI: Inspection: abdomen appears normal, Palpation: soft, mild abdominal bo1 tenderness, 07:54 Abdomen/GI: Palpation: rebound tenderness, is not appreciated, involuntary guarding, is bo1 not appreciated, 07:54 Skin: no rash present. Vital Signs: 05:33 BP 127 / 87; Pulse 95; Resp 18; Temp 98.6; Pulse Ox 98% on R/A; Weight 99.79 kg; Height rg5 6 ft. 0 in. ; Pain 10/10; 05:39 BP 127 / 87; Pulse 95; Resp 18 S; Pulse Ox 98% on R/A; Pain 10/10; rg5 08:01 BP 128 / 86; Pulse 100; Resp 22; Pulse Ox 98% ; bp 05:33 Body Mass Index 29.84 (99.79 kg, 182.88 cm) rg5 05:33 Pain Scale: Adult rg5 05:39 Pain Scale: Adult rg5 MDM: 05:41 Medical Screening Exam initiated bo1 06:36 Differential diagnosis: gastritis, viral gastroenteritis, gastroenteritis. Data bo1 reviewed: vital signs, lab test result(s). ED course: Pt is better post meds, nausea has resolved. Carpal-pedal spasm has resolved. Ambulatory. GF states it was the eggs eaten at a [employer] that is the most likely cause. 07:55 ED course: Pt is better post fluids and meds, pt will be managed as an OP. 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 07:56 Response to treatment: the patient's symptoms have markedly improved after treatment. bo1 07/16 05:48 Order name: CBC with Diff; Complete Time: 07:59 bo 07/16 05:48 Order name: CMP; Complete Time: 06:51 bo1 07/16 05:48 Order name: Lipase; Complete Time: 06:51 bo1 07/16 06:03 Order name: Manual Differential; Complete Time: 07:59 EDMS 07/16 05:48 Order name: IV Saline Lock; Complete Time: 05:50 bo1 07/16 05:48 Order name: Labs collected and sent; Complete Time: 05:50 bo1 Administered Medications: 06:02 Drug: NS 0.9% IV 1000 ml IV at 1 bolus Per protocol; to be given as a bolus over 60 rg5 minutes Route: IV; Rate: 1 bolus; Site: right antecubital; 08:31 Follow up: IV Status: Completed infusion bp 06:02 Drug: metoCLOPramide IVP 10 mg IVP once; over 1 to 2 minutes Route: IVP; Site: right rg5 antecubital; 08:31 Follow up: Response: No adverse reaction bp 06:02 Drug: Ativan IVP 1 mg IVP once Route: IVP; Site: right antecubital; rg5 08:31 Follow up: Response: No adverse reaction bp 07:30 Drug: Ciprofloxacin PO 500 mg PO once Route: PO; bp 08:30 Follow up: Response: No adverse reaction bp Disposition Summary: 07/16/24 07:57 Discharge Ordered Notes: Location: Home bo1 Problem: new bo1 Symptoms: have improved bo1 Condition: Stable bo1 Diagnosis - Infectious gastroenteritis and colitis, unspecified bo1 - Hyperventilation bo1 Followup: bo1 - With: Private Physician - When: Upon discharge from the Emergency Department - Reason: Recheck today's complaints, Continuance of care Discharge Instructions: - Discharge Summary Sheet bo1 - Diarrhea, Adult bo1 - Hyperventilation bo1 Forms: - Medication Reconciliation Form bo1 - Antibiotic Education bo1 - Prescription Opioid Use bo1 - Patient Portal Instructions bo1 - Leadership Thank You Letter bo1 Prescriptions: - Cipro 500 mg Oral Tablet - take 1 tablet ORAL route every 12 hours for 10 days; 20 tablet; Refills: 0, bo1 Product Selection Permitted - Reglan 10 mg Oral Tablet - take 1 tablet ORAL route every 6 hours take 30 minutes before meals and at bo1 bedtime; 20 tablet; Refills: 0, Product Selection Permitted Signatures: Dispatcher [employer] EDShai Islas, RN RN Michi Land MD MD bo1 Louie Patel RN RN rg5 Corrections: (The following items were deleted from the chart) 05:48 05:48 CBC+H.LAB.BRZ ordered. EDMS EDMS 05:48 05:48 COMPREHENSIVE METABOLIC PANEL+C.LAB.BRZ ordered. EDMS EDMS 05:48 05:48 LIPASE+C.LAB.BRZ ordered. EDMS EDMS 05:48 05:48 Urinalysis+U.LAB.BRZ ordered. EDMS EDMS
[2024-07-16 10:43] VITALS: TEMP 98.6; O2SAT 98
[2024-07-16 10:46] VITALS: BP 128/86
== END 2024-07-16 08:31 | disposition home or self-care (01) ==
LOC: ER 05:15
DX: A09 Infectious gastroenteritis and colitis, unspecified (principal); R06.4 Hyperventilation
CPT/HCPCS: 96361; 85025; 36415; 83690; 80053; 96375; 96374; 99284; J2765; J7030